=== PATIENT | female | born 2000 | race African-American/Black ===

== ENCOUNTER 2019-05-15 09:17 | Emergency (ER) | payer SELFPAY ==
[2019-05-15 09:32] LABS: #Basophils 0.1 thou/uL (0.0-0.2); #Eosinphils 0.3 thou/uL (0.0-0.7); #Lymphocytes 3.3 thou/uL (1.20-3.40); #Monocytes 0.5 thou/uL (0.11-0.59); #Neutrophils 5.3 thou/uL (1.40-6.50); %Basophils 1.4 % (0.0-1.0); %Eosinophils 3.4 % (0.0-10.0); %Lymphocytes 34.3 % (28.0-48.0); %Monocytes 5.5 % (0.0-4.0); %Neutrophils 55.3 % (31.0-61.0); Hemoglobin 12.8 g/dL (12.0-16.0); Mean Corpuscular HGB CONC 32.2 g/dL (32.0-36.0); Mean Corpuscular Hemoglobin 27.7 pg (25.0-35.0); Mean Platelet Volume 8.4 fL (7.4-10.4); Platelet Count 272 thou/uL (130-400); RBC Distribution Width 11.6 % (11.5-14.5); Red Blood Cell (RBC) Count 4.63 mill/uL (4.00-5.20); White Blood Cell (WBC) Count 9.6 thou/uL (4.8-10.8)
[2019-05-15 09:35] LABS: BHCG - Serum Negative (NEGATIVE); Pregs Control Background? CLEAR/WHITE (CLR/WHITE); Pregs Control Bar Appear? YES (CONTROL BAR)
[2019-05-15 09:37] LABS: INR-International Normal Ratio 0.9; PTT 25.9 SEC (22.9-36.1); Prothrombin Time 12.6 SEC (12.0-14.7)
[2019-05-15 09:48] LABS: ALT (SGPT) 15 U/L (8-55); AST (SGOT) 17 U/L (5-30); Albumin 3.6 g/dL (3.5-5.0); Alkaline Phosphatase 58 U/L (40-100); Anion Gap 11 mmol/L (10-20); BUN (Urea Nitrogen) 11 mg/dL (8.4-21.0); Bilirubin, Total Less than 0.2 mg/dL (0.2-1.2); Calc. Creatinine Clearance 0 mL/min (70-130); Calcium 7.9 mg/dL (7.8-10.44); Carbon Dioxide 21 mmol/L (22-29); Chloride 111 mmol/L (98-107); Estimated GFR-MDRD Greater than 90; Globulin 2.8 g/dL (2.4-3.5); Glucose 100 mg/dL (70-105); Potassium 3.5 mmol/L (3.5-5.1); Protein, Total 6.4 g/dL (6.0-8.3); Sodium 139 mmol/L (136-145)
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
[2019-05-15] MEDS ORDERED: Adacel (T-DAP) 0.5 ML SYRINGE ONE (10:48)
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
--- NOTE | 2019-05-18 11:03 | EKG ---
Test Reason : Blood Pressure : / mmHG Vent. Rate : 118 BPM Atrial Rate : 118 BPM P-R Int : 154 ms QRS Dur : 082 ms QT Int : 314 ms P-R-T Axes : 054 062 054 degrees QTc Int : 440 ms Sinus tachycardia Otherwise normal ECG Confirmed by LONA AYALA MD ([id number]), web content editor LEILA RIVAS ([id number] on 05/18/2019 11:03:03 AM Referred By: SHARER Confirmed By:LONA AYALA MD
== END 2019-05-15 11:48 | disposition home or self-care (01) ==
LOC: ERS 09:17
DX: S31.101A Unspecified open wound of abdominal wall, left upper quadrant without penetration into peritoneal cavity, initial encounter (principal); W34.00XA Accidental discharge from unspecified firearms or gun, initial encounter
CPT/HCPCS: 36415; 74177; 80053; 83605; 83690; 84703; 85025; 85610; 85730; 86850; 86900; 86901; 90471; 90715; 93005; 96365; G0390; J0690